=== PATIENT | male | born 1950 | race Caucasian/White ===

== ENCOUNTER → 2019-08-26 09:03 | Outpatient (CLI) | payer OTHER, SELFPAY ==
--- NOTE | 2019-08-26 09:04 | DI.RAD.S_ITS ---
PROCEDURE: XR LUMBAR SPINE MIN 4V INDICATIONS: Low back pain right lower extremity pain status post fall TECHNIQUE: 5 views of the lumbar spine were acquired. COMPARISON: None. FINDINGS: Bones: 5 nonrib-bearing vertebrae are present. There is normal bony alignment. No vertebral body compression fractures. No suspicious bony lesions. Although there is moderately severe to severe degenerative disc disease and facet osteoarthritis no traumatic subluxation is seen and no compression fracture is found. Soft tissues: Overlying bowel gas pattern is normal. No suspicious soft tissue calcifications. Oblique images: No pars defects. IMPRESSION: Chronic degenerative changes moderately severe to severe, without acute or subacute trauma found. Dictated by: Rolando Leblanc M.D. on 08/26/2019 at 10:07 Approved by: Rolando Leblanc M.D. on 08/26/2019 at 10:12
== END ==
PROVIDERS: Family Provider Family Medicine; PCP Family Medicine; Visit Provider Physical Medicine & Rehabilitation
DX: M54.5 Low back pain (principal); M47.27 Other spondylosis with radiculopathy, lumbosacral region
CPT/HCPCS: 72110

== ENCOUNTER 2019-10-15 08:04 | Outpatient (CLI) | payer OTHER, SELFPAY ==
[2019-10-15] VITALS (7 sets, daily range): BP systolic 116–133; BP diastolic 62–80; PULSE 54–73; RESP 16–18; TEMP 36.1; O2SAT 98–100
--- NOTE | 2019-10-15 08:06 | DI.RAD.S_ITS ---
PROCEDURE: PAIN L/S TRANSFORAMINAL INJECT INDICATIONS: SPINAL STENOSIS FINDINGS: Fluoroscopic spot filming was performed to verify placement of spinal needles at the L5-S1 level(s), as labeled on the films. Appropriate location(s) of the needle tip(s) was confirmed by injection of iodinated contrast. Dictated by: Last Peres M.D. on 10/15/2019 at 13:28 Approved by: Last Peres M.D. on 10/15/2019 at 13:39
[2019-10-15] MEDS: fentaNYL 100 MCG/2 ML INJ 50 MCG IV (09:49)
[2019-10-15] MEDS: MIDAZOLAM 5 MG/5 ML VIAL IV (09:49)
[2019-10-15] MEDS: BUPIVACAINE 0.25% (PF) VIAL 2 ML INJ (09:58)
[2019-10-15] MEDS: DEXAMETHASONE 10 MG/ML VIAL 20 MG INJ (09:58)
[2019-10-15] MEDS: BETAMETHASONE 30 MG/5 ML MDV 6 MG INJ (09:58)
[2019-10-15] MEDS: IOPAMIDOL 15 ML VIAL 3 ML INJ (09:58)
--- NOTE | 2019-10-15 10:00 | PC.NURSE ---
ASSISTING PT OFF TABLE AND TRANSPORTING TO POST PROC AREA IN STABLE CONDITION. PASSING RN CARE OF PT OFF TO DAVID Tay RN.
--- NOTE | 2019-10-15 10:01 | PM.PROC.1 ---
Procedures Date/Time Date of procedure: 10/15/19 Time of procedure: 10:01 General Procedure description: PREOP DIAGNOSIS 1. FORMAINAL STENOSIS WITH LE SYMPTOMS, POST OP DIAGNOSIS 1. FORMAINAL STENOSIS WITH LE SYMPTOMS, PROCEDURES 1.FLUOROSCOPICALLY GUIDED CONTRAST CONTROLLED TRANSFORAMINAL EPIDURAL STEROID INJECTION - RIGHT L5/S1 TFESI PHYSICIAN: Jaron Naranjo DO INDICATIONS: Benito is referred by for treatment of Foraminal Stenosis with right LE Symptoms FINDINGS Foraminal Nerve Root Compression secondary to disc disease and facet hypertrophy DESCRIPTION OF PROCEDURE Following review of allergy and review of potential side effects and complications, including, but not necessarily limited to, infection, allergic reaction, local tissue breakdown, stroke, temporary or permanent nerve injury, paralysis, and possible , the patient indicated that the patient understood and agreed to proceed. An informed consent document was signed by the patient, witnessed by a nurse, and placed in the patient's chart. Additionally, other treatment options including medications, modalities, and physical therapy were reviewed with the patient. After review of previous anaesthesic history and IV conscious sedation the patient was deemed safe to proceed with todays procedure with IV conscious sedation as ASA class II designation. Safety time-out was performed to confirm patient ID, procedure to be performed and site of procedure. IV sedation was accomplished with a combination of 2mg of Versed and 50mcg of Fentanyl was administered by the RN after DO order, titrated to patient comfort during the course of the procedure while the patient remained responsive to all verbal commands In the prone position following sterile prep and drape of the lumbar region, the right L5/S1 posterior neuroforamen was identified fluoroscopically. The skin was anesthetized via a 25-gauge 1.5-inch needle with 1% lidocaine solution. At this point, a 25-gauge 3.5-inch spinal needle was atraumatically introduced and advanced under fluoroscopic guidance through the posterior right L5/S1 neuroforamen to approximately the anterior aspect of the canal. Depth was confirmed on lateral view. Following negative aspiration, injection of approximately 1.5 cc of Isovue 200 under live fluoroscopy in the AP view confirmed excellent flow along the nerve root, into the epidural space without vascular or intrathecal uptake observed Radiological data, including multiple fluoroscopic views of the lumbosacral spine, reveal a spinal needle at the right L5/S1 posterior neuroforamen. Subsequent views show flow of contrast material flowing superiorly and inferiorly along the nerve root confirming epidural flow. Subsequently, a test dose of 1.5 cc of 1% lidocaine solution was administered and patient was observed for two minutes for signs or symptoms of complications, including abdominal pain, shortness of breath, bilateral upper or lower extremity weakness, nausea and vomiting, prior to steroid injection. At this point, a total of 3cc or 20mg of dexamethasone and 6mg betamethasone was injected without incident. The procedure tolerated the procedure well without signs or symptoms of complications prior to transfer to the recovery area continued monitoring without incident. The patient was then transferred to the recovery area where they were observed for an appropriate time after the injection. The patient reported a VAS score of 7 prior to the procedure and a post-procedure VAS of 0. Total Fluoroscopy Time: 15 seconds Total Conscious Sedation Time: 24min POST OP INSTRUCTIONS The patient was provided a Pain Log to continue to record their response to the target-specific procedure prior to follow-up visit with their referring physician. Additionally, specific post-injection care instructions and a contact number to our office were provided if concerns arise regarding possible complications associated with the procedure are suspected. Jaron Naranjo DO Complications: none
== END 2019-10-15 10:22 | disposition home or self-care (01) ==
PROVIDERS: Family Provider Family Medicine; PCP Family Medicine; Visit Provider Physical Medicine & Rehabilitation
DX: M48.07 Spinal stenosis, lumbosacral region (principal); M51.17 Intervertebral disc disorders with radiculopathy, lumbosacral region
CPT/HCPCS: 64483; 99152; J0702; J1100; J2250; J3010

== ENCOUNTER → 2020-05-30 08:30 | Outpatient (CLI) | payer OTHER, SELFPAY ==
[2020-06-01 13:06] LABS: COVID19 Sendout Not Detected (Not Detect)
== END ==
PROVIDERS: Family Provider Family Medicine; PCP Family Medicine; Visit Provider Nurse Practitioner
DX: Z11.59 Encounter for screening for other viral diseases (principal)
CPT/HCPCS: 87635

== ENCOUNTER 2020-06-02 07:20 | Outpatient (CLI) | payer OTHER, SELFPAY ==
[2020-06-02] VITALS (12 sets, daily range): BP systolic 101–132; BP diastolic 58–81; PULSE 54–66; RESP 10–22; O2SAT 96–100
[2020-06-02] MEDS: fentaNYL 100 MCG/2 ML INJ 50 MCG IV (08:26)
[2020-06-02] MEDS: MIDAZOLAM 5 MG/5 ML VIAL IV (08:26)
--- NOTE | 2020-06-02 08:30 | IR_ITS ---
PATIENT NAME: MUSA HAYS : 1950 EXAM DATE: 06/02/2020 8:[address] EDSON CRUZ D.O. CC: RENARD DYER MODALITY: XA PATIENT TYPE: Out CONTRAST MEDIA: STATION ID: [id number] FLUORO TIME: 33 SECONDS FLOURO TIME 3 IMAGES This report includes an Addendum and supersedes previous reports for this exam. PROCEDURE: PAIN L INTERLAMINAR/CAUDAL INJ INDICATIONS: Spinal stenosis, lumbosacral region COMPARISON: None. Fluoroscopic spot filming was performed to verify placement of a spinal needle at the L5-S1 level on the left, as labeled on the films. Appropriate location of the needle tip was confirmed by injection of iodinated contrast. IMPRESSION: No significant intraprocedural abnormality. Dictated by: Chucho Roper on 06/02/2020 at 8:23 Approved by: Chucho Roper on 06/02/2020 at 8:26 ADDENDUM: This case was dictated and approved by Dr. Guero Chavez, and not Chucho Roper. Dictated by: Guero Chavez M.D. on 06/02/2020 at 13:09 Approved by: Guero Chavez M.D. on 06/02/2020 at 13:10
[2020-06-02] MEDS: IOPAMIDOL 15 ML VIAL 3 ML INJ (08:32)
[2020-06-02] MEDS: DEXAMETHASONE 10 MG/ML VIAL 20 MG INJ (08:32)
[2020-06-02] MEDS: BETAMETHASONE 30 MG/5 ML MDV 6 MG INJ (08:32)
[2020-06-02] MEDS: BUPIVACAINE 0.25% (PF) VIAL 2 ML INJ (08:32)
--- NOTE | 2020-06-02 08:56 | P.PCN_ITS ---
Date/Time/Diagnoses Date of procedure: 06/02/20 Time of procedure: 08:56 Pre-procedure diagnosis: 1. HNP WITH RADICULAR FEATURES, 2. MULTILEVEL CENTRAL STENOSIS, Post-procedure diagnosis: same Procedure Notes Procedure: 1. FLUOROSCOPICALLY GUIDED CONTRAST CONTROLLED INTERLAMINAR EPIDURAL STEROID INJECTION - L5/S1 Indications: Benito is referred by Dr. Grag for treatment of Bilateral Foraminal Stenosis L>R LE symptoms. Physician: Jaron Naranjo Total Fluoroscopy time (seconds): 33 Total sedation minutes: 24 Complications: none Procedure in detail & Post-procedure care: FINDINGS Multilevel Central Spinal Stenosis with Nerve Root Compression DESCRIPTION OF PROCEDURE Fluoroscopically guided, contrast-controlled L5/S1 translaminar epidural steroid injection. Following review of allergy and review of potential side effects and complications, including, but not necessarily limited to, infection, allergic reaction, local tissue breakdown, temporary as well as permanent nerve injury, paralysis, stroke and possible , the patient indicated that the patient understood and agreed to proceed. An informed consent document was signed by the patient, witnessed by a nurse, and placed in the patient's chart. Additionally, other treatment options including modalities, medications, and physical therapy were reviewed with the patient. After review of previous anaesthesic history and IV conscious sedation the patient was deemed safe to proceed with today?s procedure with IV conscious sedation as ASA class II designation. Safety time-out was performed to confirm p atient ID, procedure to be performed and site of procedure. IV sedation was accomplished with a combination of 2mg of Versed and 50mcg of Fentanyl administered by the RN after DO order, titrated to patient comfort during the course of the procedure while the patient remained responsive to all verbal commands. In the prone position, following sterile prep and drape of the lumbar region, the L5/S1 translaminar space was identified fluoroscopically. The skin was anesthetized via a 25-gauge, 1.5-inch needle with 1% lidocaine solution. At this point, a 22-gauge short bevel spinal needle was atraumatically introduced and advanced under fluoroscopic guidance into the region of the L5/S1 translaminar space. Depth was confirmed on lateral view. Radiological data, including multiple fluoroscopic views of the lumbar spine, reveal a spinal needle at the L5/S1 translaminar space. Lateral views then show placement of the needle in the epidural space. Subsequent views show contrast material flowing superiorly and inferiorly in the epidural space. No vascular or intrathecal uptake is observed. At this point, using loss of resistance technique with saline and air, the epidural space was entered. This was confirmed following negative aspiration with injection of approximately 1.5cc of Isovue 200, showing excellent epidural flow without vascular or intrathecal uptake. At this point, 1 cc of 1% lidocaine solution combined with 3cc or 20mg of dexamethasone and 6mg of betamethasone was injected without incident. The patent tolerated the procedure without signs of symptoms of complications prior to transfer to the recovery area for further monitoring. The patient was then transferred to the recovery area where they were observed for an appropriate period of time after the injection. The patient reported a VAS score of 6 prior to the procedure and a post-procedure VAS of 0. POST OP INSTRUCTIONS The patient was provided a Pain Log to continue to record their response to the target-specific procedure prior to follow-up visit with their referring physician. Additionally, specific post-injection care instructions and a contact number to our office were provided if concerns arise regarding possible complications associated with the procedure are suspected.
== END 2020-06-02 09:25 | disposition home or self-care (01) ==
LOC: RAD 07:20
PROVIDERS: Family Provider Family Medicine; PCP Family Medicine; Referring Provider Family Medicine; Visit Provider Physical Medicine & Rehabilitation
DX: M51.17 Intervertebral disc disorders with radiculopathy, lumbosacral region (principal); M48.07 Spinal stenosis, lumbosacral region
CPT/HCPCS: 62323; 99152; 99153; J0702; J1100; J2250; J3010